=== PATIENT | male | born 1960 | race Caucasian/White ===

== ENCOUNTER 2022-06-08 13:04 | Emergency (ER) | payer BC, SELFPAY ==
--- NOTE | ~2022-06-08 | CT_ITS ---
EXAMINATION: CT brain wo con DATE: 06/08/2022 17:00 INDICATION: Headache, dizziness, vertigo, nausea. Left ureter during loss. TECHNIQUE: Computed tomography (CT) of the head was performed without intravenous contrast. The mA wa s adjusted according to patient size. Iterative reconstruction technique was employed. Exam dose: 68 1.00 mGy-cm total exam DLP. COMPARISON: None FINDINGS: No intracranial mass lesion or hemorrhage or cerebrovascular accident is detected. No midli ne shift or mass effect. Normal ventricular size. Bilateral carotid siphon internal carotid artery calcification. No subdural or epidural hematoma. The paranasal sinuses and mastoid air cells are normally developed and aerated. Minimal mucosal perio steal thickening or mucous retention cyst along the lower medial wall of the right maxillary sinus. Inner and middle ear apparatus are unremarkable. No fracture or bone destruction of the cranial vault. IMPRESSION: Mild cerebral atherosclerosis. No significant intracranial abnormality is noted otherwise Reviewed, dictated and finalized at [facility]. Reviewed, dictated and finalized at [facility].
[2022-06-08 13:07] VITALS: BP 140/60; PULSE 71; RESP 15; TEMP 37.1; O2SAT 100
--- NOTE | 2022-06-08 13:10 | ECG_ITS ---
Measurements Intervals [place] Rate: 63 P: 7 WA: 204 QRS: 30 QRSD: 100 T: 67 QT: 394 QTc: 403 Interpretive Statements SINUS RHYTHM EARLY PRECORDIAL R/S TRANSITION ST ELEVATION IN ANTEROLAT/INF LEADS- PROBABLY EARLY REPOLARIZATION ABNORMALITY BORDERLINE ECG Electronically Signed On 06-08-2022 18:42:35 CDT by Davon Mixon D.O.
[2022-06-08 13:33] LABS: Basophils Percent Auto 0.3 % (0.2-1.2); Eosinophils Percent Auto 0.2 % (0-4.4); Hematocrit 44.3 % (42.0-52.0); Hemoglobin 14.3 g/dL (14.0-18.0); Immature Granulocyte Absolute 0.06 K/mm3 (0.00-0.031); Immature Granulocyte Percent A 0.6 % (0-0.5); Lymphocytes Absolute Auto 2.35 K/mm3 (0.9-3.2); Lymphocytes Percent Auto 23.1 % (18.3-44.2); Mean Corpuscular HGB Conc 32.3 g/dl (32-36); Mean Corpuscular Hemoglobin 28.8 pg (26-34); Mean Corpuscular Volume 89.1 fl (80-100); Mean Platelet Volume 9.9 fl (7.4-10.4); Monocytes Absolute Auto 0.5 K/mm3 (0.1-0.6); Monocytes Percent Auto 4.4 % (2.6-8.5); Neutrophils Absolute Auto 7.3 K/mm3 (1.3-6.7); Neutrophils Percent Auto 71.4 % (45.5-73.1); Platelet Count Result 301 k/mm3 (150-375); Red Blood Count 4.97 M/mm3 (4.6-6.20); Red Cell Distribution Width 13.4 % (11.5-14.5); White Blood Count 10.2 K/mm3 (4.5-10.0)
[2022-06-08 13:37] LABS: Alanine Aminotransferase 32 U/L (6-50); Albumin Level 4.4 g/dL (3.5-5.1); Alkaline Phosphatase 95 U/L (38-126); Anion Gap 9 mmol/L (8-16); Aspartate Amino Transferase 30 U/L (17-59); Bilirubin,Total 1.1 mg/dL (0.2-1.3); Blood Urea Nitrogen 14 mg/dL (9-20); Carbon Dioxide 21 mmol/L (22-30); Chloride 107 mmol/L (98-107); Estimated CRCL calculation 134 ml/min; Estimated Glomerular Filt Rate > 60; Glucose 166 mg/dL (65-110); Potassium 3.9 mmol/L (3.4-5.0); Sodium 137 mmol/L (137-145)
--- NOTE | 2022-06-08 16:26 | ED.GENADULT ---
HPI - General Adult General Chief complaint: Unspecified Stated complaint: hearing loss to left ear - nausea - MIRANDA Time Seen by Provider: 06/08/22 16:05 History of Present Illness HPI narrative: 61-year-old male presenting to the emergency department for evaluation of left ear pain numbness, decreased hearing, and associated vertigo. Patient states when he woke up this morning at 745 he had some issues with nausea and dizziness. Patient states his dizziness is worsened with sitting up, turning his head and having his eyes open. Patient states his symptoms are improved when he closes his eyes and rest. Patient does state that he has some fullness of the left ear and also has decreased hearing of the left ear. Patient denies any other neurologic issues. Denies any other associated numbness or weakness. Related Data Home Medications Medication Instructions Recorded Confirmed aspirin 81 mg tablet,delayed 81 mg PO DAILY 01/09/20 05/12/22 release loratadine 10 mg tablet (Claritin) 10 mg PO DAILY 01/09/20 05/12/22 omeprazole 20 mg tablet,delayed 20 mg PO .prn 01/23/21 05/12/22 release Allergies Allergy/AdvReac Type Severity Reaction Status Date / Time No Known Allergies Allergy Unverified 06/08/22 13:05 Review of Systems Review of Systems: CONSTITUTIONAL: Denies fever, chills, or sweats. EYES: Denies visual changes, redness, or discharge. ENT: See HPI CARDIOVASCULAR: Denies chest pain, palpitations, or edema. RESPIRATORY: Denies cough or dyspnea. GASTROINTESTINAL: Denies abdominal pain, nausea, vomiting, or diarrhea. GENITOURINARY: Denies dysuria or hematuria. SKIN: Denies rash or itching. MUSCULOSKELETAL: Denies back pain, joint pain, or myalgia. NEUROLOGIC: Denies headache, numbness, or weakness. [facility] Past Medical History Medical History Allergic rhinitis HLD (hyperlipidemia) Family History Family History Father Acute myocardial infarction Malignant neoplasm of prostate Family history of dementia Other Cerebrovascular accident Family history of cardiovascular disease Family history of malignant neoplasm Social History Social History Smoking status: Never smoker Alcohol intake: never Substance use: never Gender identity (if verbalized by the patient): Male Sexual Orientation (if Verbalized by the Patient): Straight or Heterosexual Spiritual care concerns: No Exam Narrative: APPEARANCE: Well appearing, no pain, no distress, well-nourished. HEAD: normocephalic, atraumatic. EYES: PERRLA/EOMI, conjunctivae clear. NOSE: Normal no drainage EARS: Fluid behind left TM. Irritation of the external canal. Some erythema of the TM. THROAT: Pharynx clear, no exudate. NECK: Supple. No adenopathy, no masses. RESPIRATORY: Airway patent, respirations nonlabored. Clear to auscultation bilaterally, no rales, rhonchi, wheezing. CARDIOVASCULAR: Regular rate and rhythm without murmurs rubs or gallops. ABDOMINAL: Soft, nontender, nondistended, normal bowel sounds MUSCULOSKELETAL: Moves all extremities. Strength/ROM intact, No edema, No calf tenderness. NEURO: Alert. Cranial nerves II through XII intact. Grossly intact. Vertigo symptoms are worsened when the patient has his eyes open and he is turning his head. Vertigo symptoms are improved when he is resting and his eyes are closed. No focal deficit SKIN: Warm, dry. Normal Color Course Course Emergency Course: Patient did feel improved with the meclizine. Patient was treated with Augmentin for a suspected left otitis media. Patient was advised to take ibuprofen for left ear inflammation. CT scan showed no acute intracranial abnormality. Patient was able to ambulate in the emergency department without issue. Patient was encouraged to have close follow-up with ENT. Vital Signs Vital sig
[2022-06-08] MEDS: MECLIZINE HCL 25 MG TABLET PO (16:32)
[2022-06-08] MEDS: AMOXICILLIN/CLAVULANATE K 875-125 MG TAB 1 TABLET PO (17:44)
[2022-06-08 17:51] VITALS: BP 135/62; PULSE 78; RESP 18; O2SAT 99
== END 2022-06-08 17:59 | disposition home or self-care (01) ==
PROVIDERS: Emergency Medicine; Emergency Provider Emergency Medicine; PCP Family Medicine
DX: R42 Dizziness and giddiness (principal); E78.5 Hyperlipidemia, unspecified; I67.2 Cerebral atherosclerosis; R94.31 Abnormal electrocardiogram [ECG] [EKG]
CPT/HCPCS: 36415; 70450; 80053; 85025; 93005; 99284; A9270

== ENCOUNTER → 2022-06-16 10:45 | Outpatient (CLI) | payer BC, SELFPAY ==
--- NOTE | ~2022-06-16 | MR_ITS ---
EXAMINATION: MR brain IAC wo/w con DATE: 06/16/2022 11:46 INDICATION: Sudden hearing loss TECHNIQUE: Magnetic resonance imaging (MRI) of the brain and brainstem was performed without and with 20 mL Multihance intravenous contrast. Sequences included sagittal and axial T1-weighted FSE, axial diffusion-weighted FS EPI, axial T2*-weighted GRE, axial T2-weighted FLAIR Propeller, axial T2-weight ed Propeller, small [id number]-[id number] coronal FIESTA, small qykgh-op-zowg coronal T1-weighted FSE, and sm all oeqvm-[id number]-avca axial T1-weighted SPGR. Postcontrast sequences included axial T1-weighted FSE, smal l [id number] coronal T1-weighted FSE, and small ksuxk-dw-xpsa axial T1-weighted SPGR. Apparent dif fusion coefficient (ADC) maps were created. COMPARISON: None. FINDINGS: There are no areas of restricted diffusion to suggest acute infarction. No intracranial hemorrhage or abnormal intracranial mass lesion. There are no intraparenchymal signal abnormalities seen on the ot her pulse sequences. The ventricles are symmetric and normal in size. There are no abnormal extra-axi al fluid collections. Normal seventh/eighth cranial nerve complexes. No cerebellopontine angles mass es. No evidence of mastoid or middle ear fluid. Flow voids are seen in the cerebral arteries on the T2-weighted sequences consistent with their expected patency. Visualized orbits and soft tissues are unremarkable. There are no areas of abnormal enhancement on the post contrast images. IMPRESSION: 1. Normal MR of the brain and internal auditory canals. No etiology identified for reported hearing l oss from the left ear. Reviewed, dictated and finalized at location A. IMPRESSION: 1. Normal MR of the brain and internal auditory canals. No etiology identified for reported hearing loss from the left ear.
[2022-06-16 11:17] LABS: Estimated Glomerular Filt Rate > 60
== END ==
PROVIDERS: PCP Family Medicine; Visit Provider Otolaryngology
DX: H91.22 Sudden idiopathic hearing loss, left ear (principal)
CPT/HCPCS: 70553; A9577